=== PATIENT | female | born 1940 | race Caucasian/White ===

== ENCOUNTER 2019-10-23 11:42 | Emergency (ER) | payer MEDICARE, SELFPAY ==
[2019-10-23 11:45] VITALS: BP 180/87; PULSE 73; RESP 16; TEMP 36.5; O2SAT 97; BMI 26.6
[2019-10-23] MEDS: Acetaminophen 500 MG Tablet 1000 MG PO (12:34)
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
[2019-10-23 12:58] VITALS: BP 162/79; PULSE 72; RESP 15; O2SAT 99
== END 2019-10-23 12:59 | disposition home or self-care (01) ==
LOC: ED 12:41
PROVIDERS: Emergency Provider Emergency Medicine; Family Provider Student in an Organized Health Care Education/Training Program; PCP Student in an Organized Health Care Education/Training Program
DX: M79.18 Myalgia, other site (principal); R51 Headache; V89.2XXA Person injured in unspecified motor-vehicle accident, traffic, initial encounter; Y93.9 Activity, unspecified; Y92.9 Unspecified place or not applicable; Y99.9 Unspecified external cause status; E11.9 Type 2 diabetes mellitus without complications; Z79.84 Long term (current) use of oral hypoglycemic drugs; Z79.82 Long term (current) use of aspirin; Z79.899 Other long term (current) drug therapy; Z87.891 Personal history of nicotine dependence
CPT/HCPCS: 99284